=== PATIENT | male | born 1980 | race Caucasian/White ===

== ENCOUNTER 2023-05-18 06:28 | Day surgery (SDC) | payer OTHER, SELFPAY ==
[2023-05-18] VITALS (11 sets, daily range): BP systolic 110–139; BP diastolic 71–91; BMI 33.0
[2023-05-18] MEDS: TYLENOL 1000 MG PO (13:37)
[2023-05-18] MEDS: NORMOSOL-R 1000 IV (13:38)
[2023-05-18] MEDS: VANCOCIN 300 ML IV (13:52)
[2023-05-18] MEDS: VANCOCIN 300 MG IV (13:52)
== END 2023-05-18 18:24 | disposition home or self-care (01) ==
LOC: SDS 06:28
PROVIDERS: ATTENDING PHYSICIAN Surgery
DX: K42.9 Umbilical hernia without obstruction or gangrene (principal); M62.08 Separation of muscle (nontraumatic), other site; E66.9 Obesity, unspecified; Z68.33 Body mass index [BMI] 33.0-33.9, adult; Z72.0 Tobacco use
CPT/HCPCS: 49591

== ENCOUNTER → 2023-08-26 | Outpatient (REF) | payer OTHER, SELFPAY | LOC: DHSLP | PROVIDERS: ATTENDING PHYSICIAN Physician Assistant Medical | DX: G47.33 Obstructive sleep apnea (adult) (pediatric) (principal) | CPT/HCPCS: 95806 ==

== ENCOUNTER 2024-11-29 14:37 | Emergency (ER) | payer OTHER, SELFPAY ==
[2024-11-29 14:40] VITALS: BP 149/99
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
[2024-11-29 19:49] VITALS: BP 147/93; BMI 33.2
== END 2024-11-29 21:34 | disposition home or self-care (01) ==
LOC: EMR 14:37
PROVIDERS: EMERGENCY PHYSICIAN Student in an Organized Health Care Education/Training Program; FAMILY PHYSICIAN Physician Assistant
DX: R10.9 Unspecified abdominal pain (principal); R07.89 Other chest pain; V43.52XA Car driver injured in collision with other type car in traffic accident, initial encounter; Y92.411 Interstate highway as the place of occurrence of the external cause
CPT/HCPCS: 99284; 71101; 72040; 74177; Q9967

== ENCOUNTER 2025-02-22 06:25 | Emergency (ER) | payer OTHER, SELFPAY ==
[2025-02-22 06:30] VITALS: BP 154/94
--- NOTE | 2025-02-22 07:09 | ED.GENMED ---
History of Present Illness
General
Chief Complaint: Abdominal Pain
Time Seen by Provider: 02/22/25 06:53
History of Present Illness
History of Present Illness:
45-year-old male without significant past medical history presenting for right flank pain. Patient reports that pain started about a week ago, however since noticed a rash to the right flank region about 2 days ago. He reports subjective fever
last evening. Denies any significant pain to the abdomen. Denies chest pain, difficulty breathing, nausea, vomiting, changes in stool. Reports that he had something similar about 3 years ago, was prescribed muscle relaxers with improvement.
Denies any recent illness. Denies any additional acute medical complaints
Phy Exam
Physical Exam
Physical Exam:
General: Well-appearing, no clinical signs of dehydration, nontoxic and in no acute distress
HEENT: protecting airway
Neck: appears supple
CV: Normal heart rate, regular rhythm
Resp: No accessory muscle use, no increased work of breathing, lungs clear to auscultation bilaterally
Abd: Soft and non-distended, no tenderness to palpation
Extremities: No deformities, no swelling. On examination of the right flank, scattered patches of erythema with component of vesicular lesions wrapping around to the right lower quadrant of the abdomen
Neuro: alert, no focal neurologic deficit
: deferred
Rectal: deferred
Psych: Normal affect
Skin: Intact
Course
Orders/Labs/Results
Orders:
Orders
02/22/25 07:08
Prednisone [Deltasone] 50 mg PO NOW STA
Valacyclovir HCl [Valtrex] 1,000 mg PO NOW ONE
Vital Signs
Initial and Last Documented VS:
Initial Vital Signs
Temp Pulse Resp BP Pulse Ox
98 F 71 18 154/94 99
02/22/25 06:30 02/22/25 06:30 02/22/25 06:30 02/22/25 06:30 02/22/25 06:30
Last Documented Vital Signs
Temp Pulse Resp BP Pulse Ox
98 F 71 18 154/94 99
02/22/25 06:30 02/22/25 06:30 02/22/25 06:30 02/22/25 06:30 02/22/25 06:30
MDM/Problems Addressed
MDM/Problems Addressed:
45-year-old male presenting to the emergency department for right flank pain and rash. Vital signs on arrival are normal.
On exam patient is resting comfortably, no acute distress. Patient is afebrile, nontoxic. Patient's symptom presentation and physical exam findings is very consistent with herpes zoster. Appearance of rash is classic for zoster, as well as
distribution. No significant tenderness to the flank, no tenderness to the abdomen. No present for serious intra-abdominal process or additional systemic infection. Patient denies any report of injury or trauma, without concern for traumatic
injury. Ultimately feel stable for discharge with outpatient supportive therapy with valacyclovir and steroids with symptom presentation and rash appearance less than 72 hours ago. Prescription sent. Return precautions discussed and patient
verbalized understanding
*Pulse Oximetry
SaO2: 99
Oxygen Mode of Delivery: Room air
Patient hypoxic: no
*Critical Care Note
Total Time (30-74mins, 75-104mins- exclusive of procedures): Not Applicable
ED Attending Note
-
Portions of this chart may have been created with voice recognition software.� Occasional wrong word or��sound alike� substitutions may have occurred due to the inherent limitations of voice recognition software.
Discharge Plan
Departure
Prescriptions:
No Action
multivitamin Tablet
1 tab PO DAILY
citalopram 20 mg Tablet
20 mg PO DAILY
omega-3 fatty acids Capsule
1,000 mg PO DAILY
Cannabis
inhalation QHS PRN (Reason: anxiety and sleep)
acetaminophen [acetaminophen] 325 mg tablet
650 mg PO Q4HPRN PRN (Reason: mild pain) Qty: 1 0RF
ibuprofen 200 mg tablet
400 - 600 mg PO Q6HPRN PRN (Reason: moderate pain) Qty: 1 0RF
oxycodone 5 mg tablet
5 mg PO Q4HPRN PRN (Reason: breakthrough/severe pain) Qty: 10 0RF
Interventions
Interventions:
*Risk Screen - Suicide Last Done: 02/22/25 06:30
*General Assessment Last Done: 02/22/25 06:30
*Neglect/Abuse Screening Last Done: 02/22/25 06:30
*ED- Fall Risk Assessment Last Done: 02/22/25 06:30
*ED Influenza Vaccine History Last Done: 02/22/25 06:30
Discharge Date and Time
Print Language: [place]
[2025-02-22] MEDS: VALTREX 1000 MG PO (07:14)
[2025-02-22] MEDS: DELTASONE 50 MG PO (07:16)
[2025-02-22 07:20] VITALS: BMI 33.2
== END 2025-02-22 07:42 | disposition home or self-care (01) ==
LOC: EMR 06:25
PROVIDERS: EMERGENCY PHYSICIAN Student in an Organized Health Care Education/Training Program; FAMILY PHYSICIAN Physician Assistant
DX: B02.9 Zoster without complications (principal)
CPT/HCPCS: 99283